=== PATIENT | female | born 1930 | race Caucasian/White ===

== ENCOUNTER 2017-06-19 12:30 | Emergency (ER) | payer MEDICARE, MEDICAID ==
[~2017-06-19 12:30] MED LIST: ATIVAN 0.50.5 MG/TAB PO; CEFTIN 250250 MG/TAB PO; DEBROX OT; DESYREL 50MG50 MG PO; DULCOLAX S10 MG/SUPP RC; EXELON9.5 MG/24 TD; LOPRESSOR 225 MG/TAB PO; MIRALAX PA17 GM/Dose PO; PEPCID 20MG TAB20 MG PO; REMERON SOLTAB15 MG PO; RISPERDAL 0.20.25 MG PO; RISPERDAL 1M1 MG/TAB PO; TRIAMCINOLONE A15 G3 TP; TYLENOL 325MG325 MG PO; XALATAN EYE DROPS OU; ZOLOFT 50MG50 MG PO
[2017-06-19 12:34] VITALS: TEMP 98
[2017-06-19] MEDS ORDERED: GENTLE LAXATIVE10 MG RC (13:01)
[2017-06-19] MEDS ORDERED: TYLENOL 325MG325 MG PO (13:01)
[2017-06-19] MEDS ORDERED: EXELON9.5 MG/24 TD (13:02)
[2017-06-19] MEDS ORDERED: XALATAN EYE DROPS OD (13:02)
[2017-06-19] MEDS ORDERED: ZOLOFT 50MG50 MG PO (13:03)
[2017-06-19] MEDS ORDERED: ATIVAN 0.50.5 MG/TAB PO (13:03)
[2017-06-19] MEDS ORDERED: MIRALAX PA17 GM/Dose PO (13:03)
[2017-06-19 13:27] LABS: CALCIUM 9.6 mg/dL (8.4-10.2); CREATININE, serum 0.72 mg/dL (0.52-1.25)
[2017-06-19 14:18] LABS: PH 5 (5-8); SQUAMOUS EPITHELIAL 0-2 /hpf; URINE APPEARANCE Hazy; URINE BACTERIA Moderate /hpf; URINE BILIRUBIN Negative (NEGATIVE); URINE BLOOD Negative (NEGATIVE); URINE COLOR Yellow; URINE GLUCOSE Negative (NEGATIVE); URINE KETONE Negative (NEGATIVE); URINE UROBILINOGEN Negative (NEGATIVE)
[2017-06-19] MEDS ORDERED: MACROBID 1100 MG/CAP PO (14:37)
[2017-06-19 14:42] VITALS: BP 140/60; PULSE 80
== END 2017-06-19 14:52 | disposition home or self-care (01) ==
LOC: COL.ER 12:30
PROVIDERS: Nurse Practitioner
DX: S01.01XA Laceration without foreign body of scalp, initial encounter (principal); N39.0 Urinary tract infection, site not specified; M25.552 Pain in left hip; M25.562 Pain in left knee; W19.XXXA Unspecified fall, initial encounter; Z91.81 History of falling; Y92.129 Unspecified place in nursing home as the place of occurrence of the external cause; F03.91 Unspecified dementia, unspecified severity, with behavioral disturbance; F32.9 Major depressive disorder, single episode, unspecified; F29 Unspecified psychosis not due to a substance or known physiological condition; H40.9 Unspecified glaucoma; R40.2412 Glasgow coma scale score 13-15, at arrival to emergency department

== ENCOUNTER 2017-11-11 08:01 | Emergency (ER) | payer MEDICARE, MEDICAID ==
[~2017-11-11] VITALS: Ht 142.2 cm; Wt 50.4 kg
[~2017-11-11 08:01] MED LIST changes: +GENTLE LAXATIVE10 MG RC; +MACROBID 1100 MG/CAP PO; +XALATAN EYE DROPS OD
[2017-11-11 08:02] VITALS: TEMP 98.4
[2017-11-11] MEDS ORDERED: [UNRECOGNIZED DRUG - OTHER] PO (08:31)
[2017-11-11] MEDS ORDERED: EXELON9.5 MG/24 TD (08:32)
[2017-11-11] MEDS ORDERED: PEPCID 20MG TAB20 MG PO (08:32)
[2017-11-11] MEDS ORDERED: GERI-LANTA 355355 ML PO (08:33)
[2017-11-11] MEDS ORDERED: TOPROL XL 25MG25 MG PO (08:35)
[2017-11-11] MEDS ORDERED: REMERON30 MG PO (08:36)
[2017-11-11] MEDS ORDERED: SEROQUEL 1100 MG/TAB PO (08:37)
[2017-11-11] MEDS ORDERED: SENOKOT8.6 MG PO (08:37)
[2017-11-11] MEDS ORDERED: DESYREL DIVIDO150 M1 PO (08:38)
[2017-11-11 10:42] VITALS: BP 128/66; PULSE 79
== END 2017-11-11 10:42 | disposition home or self-care (01) ==
LOC: COL.ER 08:01
DX: S06.5X0A Traumatic subdural hemorrhage without loss of consciousness, initial encounter (principal); S01.81XA Laceration without foreign body of other part of head, initial encounter; I10 Essential (primary) hypertension; F41.9 Anxiety disorder, unspecified; F32.9 Major depressive disorder, single episode, unspecified; F03.90 Unspecified dementia, unspecified severity, without behavioral disturbance, psychotic disturbance, mood disturbance, and anxiety; K21.9 Gastro-esophageal reflux disease without esophagitis; W01.0XXA Fall on same level from slipping, tripping and stumbling without subsequent striking against object, initial encounter; Y92.129 Unspecified place in nursing home as the place of occurrence of the external cause

== ENCOUNTER 2017-11-28 16:03 | Inpatient (IN) | payer MEDICARE, MEDICAID ==
[2017-11-28] VITALS (62 sets, daily range): O2SAT 63–98
[~2017-11-28] VITALS: Ht 142 cm; Wt 48.9 kg
[~2017-11-28 16:03] MED LIST changes: +DESYREL DIVIDO150 M1 PO; +GERI-LANTA 355355 ML PO; +REMERON30 MG PO; +SENOKOT8.6 MG PO; +SEROQUEL 1100 MG/TAB PO; +TOPROL XL 25MG25 MG PO; +[UNRECOGNIZED DRUG - OTHER] PO
[2017-11-28 17:10] LABS: BASO # 0.1 (0.0-0.2); BASO % 0.4 % (0.0-2.0); EOS # 0.1 (0.0-0.7); EOS % 0.8 % (0-4.0); GRAN % 88.1 % (42.2-75.2); HEMATOCRIT 44.7 % (37.0-47.0); HEMOGLOBIN 13.5 g/dl (12.5-16.0); LYMPH # 1.2 (1.2-3.4); LYMPH % 7.4 % (20.0-51.0); MEAN CELL VOLUME 98 fl (80.0-100.0); MEAN CORPUSCULAR HEMOGLOBIN 30 pg (27.0-31.0); MEAN CORPUSCULAR HGB CONC 30 g/dl (33.0-37.0); MEAN PLATELET VOLUME 11.7 fl (7.4-10.4); MONO # 0.4 (0.1-0.6); MONO % 2.6 % (1.7-9.3); PLATELET COUNT 280 K/mm3 (130-400); RED BLOOD COUNT 4.56 M/mm3 (4.10-5.30); REDCELL DISTRIBUTION WIDTH-CV 15.9 % (11.5-14.5)
[2017-11-28 17:15] LABS: INR 1.1 (0.8-3.0); PROTHROMBIN TIME 12.7 SECONDS (9.7-12.8)
[2017-11-28 17:21] LABS: ALBUMIN 3.7 gm/dL (3.5-5.0); BILIRUBIN,TOTAL 0.5 mg/dL (0.0-1.0); CALCIUM 9.8 mg/dL (8.4-10.2); CREATININE, serum 2.81 mg/dL (0.52-1.25); POTASSIUM 3.4 mmol/L (3.4-5.0); TOTAL PROTEIN 7.9 gm/dL (6.4-8.2)
[2017-11-28 17:36] LABS: TROPONIN-I 0.061 ng/mL (0.000-0.034)
[2017-11-28] MEDS ORDERED: EXELON9.5 MG/24 TD (17:56)
[2017-11-28] MEDS ORDERED: ATIVAN 0.50.5 MG/TAB PO (17:56)
[2017-11-28] MEDS ORDERED: PEPCID 20MG TAB20 MG PO (17:58)
[2017-11-28] MEDS ORDERED: NORCO 325 MG-51 TAB PO (17:58)
[2017-11-28 19:06] LABS: CALCIUM 7.9 mg/dL (8.4-10.2); CREATININE, serum 1.93 mg/dL (0.52-1.25)
[2017-11-28 19:07] LABS: POTASSIUM 2.5 mmol/L (3.4-5.0)
[2017-11-28 20:22] LABS: PROLACTIN 35.9 ng/mL (3.0-18.6)
[2017-11-28 23:25] LABS: COLLECTION METHOD CATHETER
[2017-11-28 23:33] LABS: MUCOUS Present /lpf; PH 5 (5-8); SQUAMOUS EPITHELIAL 0-2 /hpf; URINE APPEARANCE Cloudy; URINE BACTERIA Many /hpf; URINE BILIRUBIN Negative (NEGATIVE); URINE BLOOD 1+ (NEGATIVE); URINE COLOR Amber; URINE GLUCOSE Negative (NEGATIVE); URINE KETONE Negative (NEGATIVE); URINE LEUKOCYTE ESTERASE 2+ (NEGATIVE); URINE NITRATE Positive (NEGATIVE); URINE PROTEIN(semi-quant) 2+ (NEGATIVE); URINE UROBILINOGEN Negative (NEGATIVE)
[2017-11-28 23:43] LABS: CALCIUM 8.8 mg/dL (8.4-10.2); CREATININE, serum 2.23 mg/dL (0.52-1.25); MAGNESIUM 2.5 mg/dL (1.6-2.3); PHOSPHOROUS 4.2 mg/dL (2.5-4.5); POTASSIUM 3.1 mmol/L (3.4-5.0)
[2017-11-28 23:54] LABS: TROPONIN-I 6 HR POST INITIAL 0.042 ng/mL (0.000-0.034)
[2017-11-29] VITALS (1310 sets, daily range): BP systolic 102–115; BP diastolic 37–68; PULSE 57–84; TEMP 96.8–99.6; O2SAT 30–100
[2017-11-29 00:15] LABS: ARTERIAL BLD GAS O2 SATURATION 93.6 % (92-100); ARTERIAL BLD GAS TCO2 CT 20.3; ARTERIAL BLOOD GAS BASE EXCESS -5.3 (-2-2); ARTERIAL BLOOD GAS HCO3 19.3 meq/L (22-26); ARTERIAL BLOOD GAS PCO2 34.5 mmHg (35-45); ARTERIAL BLOOD GAS PO2 74.4 mmHg (80-100); ARTERIAL BLOOD GAS pH 7.37 (7.35-7.45)
[2017-11-29 03:28] LABS: CALCIUM 8.4 mg/dL (8.4-10.2); CREATININE, serum 1.97 mg/dL (0.52-1.25); POTASSIUM 3.1 mmol/L (3.4-5.0)
[2017-11-29 05:49] LABS: BASO % 0.2 % (0.0-2.0); EOS # 0.3 (0.0-0.7); EOS % 2.3 % (0-4.0); GRAN # 9.2 (1.4-6.5); GRAN % 82.9 % (42.2-75.2); LYMPH # 1.2 (1.2-3.4); LYMPH % 10.6 % (20.0-51.0); MEAN CELL VOLUME 100 fl (80.0-100.0); MEAN CORPUSCULAR HGB CONC 30 g/dl (33.0-37.0); MEAN PLATELET VOLUME 11.7 fl (7.4-10.4); MONO # 0.4 (0.1-0.6); MONO % 3.4 % (1.7-9.3); RED BLOOD COUNT 3.25 M/mm3 (4.10-5.30); REDCELL DISTRIBUTION WIDTH-CV 15.7 % (11.5-14.5)
[2017-11-29 05:51] LABS: HEMATOCRIT 32.5 % (37.0-47.0); HEMOGLOBIN 9.7 g/dl (12.5-16.0); MEAN CORPUSCULAR HEMOGLOBIN 30 pg (27.0-31.0)
[2017-11-29 05:52] LABS: PLATELET COUNT 178 K/mm3 (130-400)
[2017-11-29 06:06] LABS: CREATININE, serum 1.77 mg/dL (0.52-1.25); MAGNESIUM 2.1 mg/dL (1.6-2.3); PHOSPHOROUS 3.4 mg/dL (2.5-4.5); POTASSIUM 3.4 mmol/L (3.4-5.0)
[2017-11-29 08:16] LABS: CALCIUM 7.7 mg/dL (8.4-10.2); CREATININE, serum 1.65 mg/dL (0.52-1.25); POTASSIUM 3.7 mmol/L (3.4-5.0)
[2017-11-29 11:32] LABS: CALCIUM 7.6 mg/dL (8.4-10.2); CREATININE, serum 1.44 mg/dL (0.52-1.25); POTASSIUM 3.9 mmol/L (3.4-5.0)
[2017-11-29 17:39] LABS: CALCIUM 7.8 mg/dL (8.4-10.2); CREATININE, serum 1.33 mg/dL (0.52-1.25); POTASSIUM 3.9 mmol/L (3.4-5.0)
[2017-11-30] VITALS (831 sets, daily range): BP systolic 113–148; BP diastolic 67–84; PULSE 75–83; TEMP 97.9–99.5; O2SAT 93–100
[2017-11-30 06:09] LABS: MEAN CELL VOLUME 97 fl (80.0-100.0); MEAN CORPUSCULAR HGB CONC 31 g/dl (33.0-37.0); MEAN PLATELET VOLUME 11.5 fl (7.4-10.4); PLATELET COUNT 157 K/mm3 (130-400); RED BLOOD COUNT 3.28 M/mm3 (4.10-5.30); REDCELL DISTRIBUTION WIDTH-CV 14.6 % (11.5-14.5)
[2017-11-30 06:18] LABS: HEMATOCRIT 31.8 % (37.0-47.0); HEMOGLOBIN 9.9 g/dl (12.5-16.0); MEAN CORPUSCULAR HEMOGLOBIN 30 pg (27.0-31.0)
[2017-11-30 06:21] LABS: CALCIUM 8.3 mg/dL (8.4-10.2); CREATININE, serum 1.29 mg/dL (0.52-1.25)
[2017-11-30 06:55] LABS: BAND 22 % (0-10); EOSINOPHIL 5 % (0-4); LYMPHOCYTE 6 % (20.0-51.0); NEUTROPHILS 66 % (42.0-75.2); PLATELET ESTIMATE NORMAL (NORMAL)
[2017-11-30 11:50] LABS: CALCIUM 8.1 mg/dL (8.4-10.2); CREATININE, serum 1.16 mg/dL (0.52-1.25); POTASSIUM 3.7 mmol/L (3.4-5.0)
[2017-11-30 17:25] LABS: CALCIUM 8.2 mg/dL (8.4-10.2); CREATININE, serum 1.12 mg/dL (0.52-1.25); POTASSIUM 3.8 mmol/L (3.4-5.0)
[2017-11-30 23:33] LABS: CALCIUM 8.4 mg/dL (8.4-10.2); CREATININE, serum 1.14 mg/dL (0.52-1.25); POTASSIUM 4.1 mmol/L (3.4-5.0)
[2017-12-01 00:20] VITALS: BP 110/73; PULSE 70; TEMP 98.2
[2017-12-01 04:47] VITALS: BP 146/56; PULSE 73; TEMP 98.2
[2017-12-01 07:50] VITALS: BP 134/53; PULSE 75; TEMP 97.2
[2017-12-01 07:59] LABS: MEAN CORPUSCULAR HGB CONC 33 g/dl (33.0-37.0); MEAN PLATELET VOLUME 11.7 fl (7.4-10.4); PLATELET COUNT 156 K/mm3 (130-400); RED BLOOD COUNT 3.43 M/mm3 (4.10-5.30); REDCELL DISTRIBUTION WIDTH-CV 13.9 % (11.5-14.5)
[2017-12-01 08:03] LABS: HEMATOCRIT 31.6 % (37.0-47.0); HEMOGLOBIN 10.3 g/dl (12.5-16.0); MEAN CELL VOLUME 92 fl (80.0-100.0); MEAN CORPUSCULAR HEMOGLOBIN 30 pg (27.0-31.0)
[2017-12-01 08:12] LABS: ALBUMIN 2.5 gm/dL (3.5-5.0); BILIRUBIN,TOTAL 0.3 mg/dL (0.0-1.0); CALCIUM 8.4 mg/dL (8.4-10.2); CREATININE, serum 1.05 mg/dL (0.52-1.25); POTASSIUM 3.7 mmol/L (3.4-5.0); TOTAL PROTEIN 5.7 gm/dL (6.4-8.2)
[2017-12-01 08:25] LABS: BAND 8 % (0-10); EOSINOPHIL 6 % (0-4); LYMPHOCYTE 9 % (20.0-51.0); NEUTROPHILS 74 % (42.0-75.2); PLATELET ESTIMATE NORMAL (NORMAL)
[2017-12-01 11:54] VITALS: BP 165/57; PULSE 62; TEMP 98.6
[2017-12-01 16:42] VITALS: BP 139/63; PULSE 77; TEMP 97.5
[2017-12-01 20:30] VITALS: BP 148/55; PULSE 63; TEMP 98.6
[2017-12-02 00:44] VITALS: BP 105/52; PULSE 92; TEMP 98.2
[2017-12-02 05:09] VITALS: BP 113/56; PULSE 74; TEMP 98.5
[2017-12-02 07:05] LABS: MEAN CELL VOLUME 91 fl (80.0-100.0); MEAN CORPUSCULAR HGB CONC 33 g/dl (33.0-37.0); MEAN PLATELET VOLUME 11.8 fl (7.4-10.4); PLATELET COUNT 161 K/mm3 (130-400); REDCELL DISTRIBUTION WIDTH-CV 13.8 % (11.5-14.5)
[2017-12-02 07:14] LABS: HEMATOCRIT 31.7 % (37.0-47.0); HEMOGLOBIN 10.4 g/dl (12.5-16.0); MEAN CORPUSCULAR HEMOGLOBIN 30 pg (27.0-31.0)
[2017-12-02 07:21] LABS: CALCIUM 8.4 mg/dL (8.4-10.2); CREATININE, serum 0.89 mg/dL (0.52-1.25); MAGNESIUM 2.3 mg/dL (1.6-2.3); PHOSPHOROUS 2.3 mg/dL (2.5-4.5); POTASSIUM 4.3 mmol/L (3.4-5.0)
[2017-12-02 08:00] LABS: BAND 9 % (0-10); EOSINOPHIL 6 % (0-4); LYMPHOCYTE 11 % (20.0-51.0); MYELOCYTE 1 % (0-0); NEUTROPHILS 69 % (42.0-75.2)
[2017-12-02 08:01] LABS: PLATELET ESTIMATE NORMAL (NORMAL); TOXIC GRANULATION PRESENT
[2017-12-02 08:07] VITALS: BP 150/59; PULSE 73; TEMP 98.7
[2017-12-02 11:56] VITALS: BP 133/656; PULSE 51; TEMP 98.5
[2017-12-02 16:40] VITALS: BP 129/62; PULSE 82; TEMP 98.4
[2017-12-02 20:10] VITALS: BP 149/66; PULSE 79; TEMP 97.5
[2017-12-03] VITALS (7 sets, daily range): BP systolic 131–166; BP diastolic 65–86; PULSE 84–94; TEMP 97.8–98.2
[2017-12-03 07:24] LABS: MEAN CELL VOLUME 91 fl (80.0-100.0); MEAN CORPUSCULAR HGB CONC 33 g/dl (33.0-37.0); MEAN PLATELET VOLUME 12.1 fl (7.4-10.4); PLATELET COUNT 185 K/mm3 (130-400); RED BLOOD COUNT 3.52 M/mm3 (4.10-5.30); REDCELL DISTRIBUTION WIDTH-CV 14.1 % (11.5-14.5)
[2017-12-03 07:29] LABS: HEMATOCRIT 32.1 % (37.0-47.0); HEMOGLOBIN 10.5 g/dl (12.5-16.0); MEAN CORPUSCULAR HEMOGLOBIN 30 pg (27.0-31.0)
[2017-12-03 07:49] LABS: CALCIUM 8.3 mg/dL (8.4-10.2); CREATININE, serum 0.88 mg/dL (0.52-1.25); PHOSPHOROUS 2.9 mg/dL (2.5-4.5); POTASSIUM 4.5 mmol/L (3.4-5.0)
[2017-12-03 07:58] LABS: BAND 18 % (0-10); EOSINOPHIL 5 % (0-4); LYMPHOCYTE 7 % (20.0-51.0); NEUTROPHILS 69 % (42.0-75.2); PLATELET ESTIMATE NORMAL (NORMAL)
[2017-12-03 07:59] LABS: TOXIC GRANULATION PRESENT
[2017-12-03 18:05] LABS: FOLATE (FOLIC ACID) 13.1 ng/mL (7.0-31.4)
[2017-12-04 03:27] VITALS: PULSE 88
[2017-12-04 06:51] LABS: MEAN CELL VOLUME 90 fl (80.0-100.0); MEAN CORPUSCULAR HGB CONC 33 g/dl (33.0-37.0); MEAN PLATELET VOLUME 12.1 fl (7.4-10.4); PLATELET COUNT 197 K/mm3 (130-400); RED BLOOD COUNT 3.53 M/mm3 (4.10-5.30); REDCELL DISTRIBUTION WIDTH-CV 14.3 % (11.5-14.5)
[2017-12-04 06:58] LABS: HEMATOCRIT 31.7 % (37.0-47.0); HEMOGLOBIN 10.5 g/dl (12.5-16.0); MEAN CORPUSCULAR HEMOGLOBIN 30 pg (27.0-31.0)
[2017-12-04 07:08] LABS: PROLACTIN 32.3 ng/mL (3.0-18.6)
[2017-12-04 07:20] LABS: CALCIUM 8.7 mg/dL (8.4-10.2); CREATININE, serum 0.86 mg/dL (0.52-1.25); POTASSIUM 4.4 mmol/L (3.4-5.0)
[2017-12-04 07:58] VITALS: BP 149/73; PULSE 91; TEMP 98.2
[2017-12-04 08:27] LABS: LYMPHOCYTE 11 % (20.0-51.0); NEUTROPHILS 83 % (42.0-75.2)
[2017-12-04 08:32] LABS: PLATELET ESTIMATE NORMAL (NORMAL)
[2017-12-04 11:44] VITALS: BP 147/66; PULSE 79; TEMP 98.3
[2017-12-04 17:19] VITALS: BP 142/77; PULSE 93; TEMP 98.2
[2017-12-04 20:15] VITALS: BP 153/87; PULSE 52; TEMP 98.6
[2017-12-05 02:05] VITALS: BP 159/96; PULSE 91; TEMP 97.5
[2017-12-05 06:44] LABS: MEAN CELL VOLUME 91 fl (80.0-100.0); MEAN CORPUSCULAR HGB CONC 32 g/dl (33.0-37.0); PLATELET COUNT 218 K/mm3 (130-400); RED BLOOD COUNT 3.59 M/mm3 (4.10-5.30); REDCELL DISTRIBUTION WIDTH-CV 14.3 % (11.5-14.5)
[2017-12-05 06:54] LABS: HEMATOCRIT 32.8 % (37.0-47.0); HEMOGLOBIN 10.6 g/dl (12.5-16.0); MEAN CORPUSCULAR HEMOGLOBIN 30 pg (27.0-31.0)
[2017-12-05 06:56] LABS: CREATININE, serum 0.88 mg/dL (0.52-1.25); MAGNESIUM 2.1 mg/dL (1.6-2.3); POTASSIUM 4.4 mmol/L (3.4-5.0)
[2017-12-05 08:24] VITALS: BP 138/69; PULSE 96; TEMP 98
[2017-12-05 09:26] LABS: BAND 11 % (0-10); EOSINOPHIL 5 % (0-4); LYMPHOCYTE 12 % (20.0-51.0); METAMYELOCYTE 1 % (0-0); NEUTROPHILS 66 % (42.0-75.2)
[2017-12-05 09:38] LABS: PLATELET ESTIMATE NORMAL (NORMAL)
[2017-12-05 12:05] VITALS: BP 156/65; PULSE 69; TEMP 98.3
[2017-12-05 17:06] VITALS: BP 150/76; PULSE 100; TEMP 97.9
[2017-12-05 21:15] VITALS: BP 156/72; PULSE 108; TEMP 98
[2017-12-06 01:02] VITALS: BP 153/81; PULSE 116; TEMP 98
[2017-12-06 07:17] LABS: CALCIUM 9.1 mg/dL (8.4-10.2); CREATININE, serum 0.87 mg/dL (0.52-1.25); POTASSIUM 4.6 mmol/L (3.4-5.0)
[2017-12-06 08:09] VITALS: BP 149/78; PULSE 102; TEMP 98
[2017-12-06 12:46] VITALS: BP 157/80; PULSE 91; TEMP 97.9
[2017-12-06 15:37] VITALS: BP 145/71; PULSE 92; TEMP 97.4
[2017-12-06 19:36] VITALS: BP 144/93; PULSE 111; TEMP 98.3
[2017-12-07 00:39] VITALS: BP 139/66; PULSE 68; TEMP 98.2
[2017-12-07 04:23] VITALS: BP 128/52; PULSE 83
[2017-12-07 07:45] LABS: CALCIUM 9.5 mg/dL (8.4-10.2); CREATININE, serum 0.93 mg/dL (0.52-1.25); POTASSIUM 4.9 mmol/L (3.4-5.0)
[2017-12-07 08:31] VITALS: BP 122/71; PULSE 95; TEMP 98.7
[2017-12-07] MEDS ORDERED: RT ALBUTER2.5 MG/0.5 IH (10:17)
[2017-12-07] MEDS ORDERED: ROXANOL 20MG20 MG/ML SL (10:17)
[2017-12-07] MEDS ORDERED: ATIVAN 2MG/ML2 MG/ML SQ (10:18)
[2017-12-07] MEDS ORDERED: LIQUIFILM TEARS15 ML OP (10:19)
[2017-12-07] MEDS ORDERED: COMPAZINE25 MG/SUPP RC (10:19)
[2017-12-07] MEDS ORDERED: TRANSDERM-0.5 MG/21 TD (10:20)
== END 2017-12-07 13:10 | disposition hospice, inpatient (51) | DRG 682 ==
LOC: COL.ER 16:03 → ICU 17:24 → MEDICAL 11-30 16:33
PROVIDERS: Emergency Medicine; Internal Medicine; Physician Assistant
PROC: 02HV33Z Insertion of Infusion Device into Superior Vena Cava, Percutaneous Approach (ICD-10-PCS; principal; 2017-11-28)
DX: N17.9 Acute kidney failure, unspecified (principal); I21.A1 Myocardial infarction type 2; E87.0 Hyperosmolality and hypernatremia; F01.51 Vascular dementia, unspecified severity, with behavioral disturbance; Z66 Do not resuscitate; Z51.5 Encounter for palliative care; F05 Delirium due to known physiological condition; N39.0 Urinary tract infection, site not specified; E44.0 Moderate protein-calorie malnutrition; E87.2 Acidosis; W18.30XA Fall on same level, unspecified, initial encounter; I10 Essential (primary) hypertension; E87.6 Hypokalemia; B96.20 Unspecified Escherichia coli [E. coli] as the cause of diseases classified elsewhere; B96.4 Proteus (mirabilis) (morganii) as the cause of diseases classified elsewhere; E11.65 Type 2 diabetes mellitus with hyperglycemia; E86.0 Dehydration
CPT/HCPCS: 99223-AI; 99231-AI; 99232-AI; 99233-AI; 99239; J0692; J0696; J1630; J1650; J1815; J3475; J3480; J7030; J7040; J7060; J7070; J7120; J7121